=== PATIENT | female | born 1985 | race Caucasian/White ===

== ENCOUNTER → 2018-11-17 | Outpatient (CLI) | payer BC, OTHER ==
--- NOTE | 2018-11-17 13:40 | 2DMMODE ---
[facility] [place] [address] 2 D/M-MODE ECHOCARDIOGRAM Name: LORRAINE TOLEDO Room [facility] [id number] ������������� Admission: 11/17/18 ������������� Attend Phys: Alek Jones Discharge: ��� ������������� ��� Date of : 81 Date of Service: 11/17/18 1340 �� Report #: [id number] �������� ��������������������������������������������[id number] THIS REPORT FOR: //name// APPROVED REPORT Study performed: 11/17/2018 13:01:43 EXAM: Comprehensive 2D, Doppler, and color-flow Echocardiogram Patient Location: Out-Patient Status: routine BSA: 1.79 HR: 81 bpm BP: 104/62 mmHg Rhythm: NSR Other Information Study Quality: Adequate Indications Palpitations 2D Dimensions RVDd: 28.62 mm IVSd: 6.78 (7-11mm) LVOT Diam: 19.78 (18-24mm) LVDd: 44.81 mm PWd: 6.78 (7-11mm) Ascending Ao: 25.72 (22-36mm) LVDs: 31.22 (25-40mm) Aortic Root: 27.77 mm Volumes Left Atrial Volume (Systole) Single Plane 4CH: 32.08 mL Single Plane 2CH: 34.92 mL LA ESV Index: 20.00 mL/m2 Aortic Valve AoV Peak Wellington.: 1.32 m/s AO Peak Gr.: 6.95 mmHg LVOT Max P.68 mmHg LVOT Max V: 0.96 m/s AVERY Vmax: 2.23 cm2 Mitral Valve E/A Ratio: 1.1 MV Decel. Time: 323.51 ms MV E Max [place].: 0.63 m/s [facility] [address] [place] [address] 2 D/M-MODE ECHOCARDIOGRAM Name: TOLEDOLORRAINE MAE Room #: [facility]#: [id number] ������������� Admission: 11/17/18 ������������� Attend Phys: Alek Jones Discharge: ��� ������������� ��� Date of : 81 Date of Service: 11/17/18 1340 �� Report #: [id number] �������� ��������������������������������������������[id number] MV A [place].: 0.59 m/s MV PHT: 93.82 ms IVRT: 79.58 ms Pulmonary Valve PV Peak [place].: 0.97 m/s PV Peak Gr.: 3.79 mmHg Pulmonary Vein P Vein S: 0.51 m/s P Vein D: 0.61 m/s P Vein S/D Ratio: 0.84 Tricuspid Valve TR Peak [place].: 1.71 m/s RAP Estimate: 5.00 mmHg TR Peak Gr.: 11.65 mmHg PA Pressure: 17.00 mmHg Left Ventricle The left ventricle is normal size. There is normal LV segmental wall motion. There is normal left ventricular wall thickness. Left ventricular systolic function is normal. LVEF is 55-60%. The left ventricular diastolic function is normal. Right Ventricle The right ventricle is normal size. The right ventricular systolic function is normal. Atria The left atrium size is normal. The right atrium size is normal. Aortic Valve The aortic valve is normal in structure. No aortic regurgitation is present. There is no aortic valvular stenosis. Mitral Valve The mitral valve is normal in structure. There is no mitral valve regurgitation noted. No evidence of mitral valve stenosis. Tricuspid Valve The tricuspid valve is normal in structure. Trace tricuspid regurgitation. Estimated PAP is 17mmHg. Pulmonic Valve The pulmonary valve is normal in structure. Trace pulmonic regurgitation. [facility] [address] [place] [address] 2 D/M-MODE ECHOCARDIOGRAM Name: TOLEDOLORRAINEALIE VOGT Room #: REG Denny#: [id number] ������������� Admission: 11/17/18 ������������� Attend Phys: Alek Jones Discharge: ��� ������������� ��� Date of : 81 Date of Service: 11/17/18 1340 �� Report #: [id number] �������� ��������������������������������������������[id number] [employer] The aortic root is normal in size. The ascending aorta is normal in size. IVC is normal in size and collapses >50% with inspiration. Pericardium There is no pericardial effusion. <Conclusion> The left ventricle is normal size. LVEF is 55-60%. The aortic valve is normal in structure. The mitral valve is normal in structure. The tricuspid valve is normal in structure. Trace tricuspid regurgitation. Estimated PAP is 17mmHg. The pulmonary valve is normal in structure. Trace pulmonic regurgitation. There is no pericardial effusion. ��������������������������������������������� <ELECTRONICALLY SIGNED> ���������������������������������������� By: Trace Dyer MD ��������������������������������������������� 11/17/18 1340 1340 1340 Trace Dyer MD /INF
== END ==
LOC: CV 11-16 13:24
DX: R00.2 Palpitations (principal)